=== PATIENT | male | born 1975 | race Caucasian/White ===

== ENCOUNTER 2016-09-16 02:38 | Emergency (ER) | payer OTHER ==
[2016-09-16 02:45] VITALS: BP 131/99
[2016-09-16] MEDS ORDERED: DEXAMETHASONE 10 MG/ML VIAL PO STA (03:17)
[2016-09-16] MEDS ORDERED: AZITHROMYCIN 250 MG TABLET PO STA (03:17)
[2016-09-16] MEDS ORDERED: DEXAMETHASONE 10 MG/ML VIAL ONE (03:19)
[2016-09-16] MEDS ORDERED: AZITHROMYCIN 250 MG TABLET PO ONE (03:19)
[2016-09-16] MEDS ORDERED: CHERRY SYRUP 10 ML UDC PO ONE (03:19)
--- NOTE | 2016-09-16 03:20 | ED Physician Documentation ---
PD HPI HEENT - Stated complaint Stated Complaint: LT EAR PAIN - Chief complaint Chief Complaint: Heent - History obtained from History obtained from: Patient - History of Present Illness Timing - onset: Yesterday Timing - duration: Hours Timing - details: Gradual onset, Still present Location: Left ear Improves: Medication Associated symptoms: Congestion, Rhinorrhea, Headache, Cough Similar symptoms before: Diagnosis (OM and sinusitis) Recently seen: Not recently seen - Additional information Additional information: 41 y/o male has had sinus congestion for the last week and he has now developed pain in the left ear, hearing loss and a sensation that the ear drum is about to rupture. He has had this about once every 4 years. Review of Systems Constitutional: reports: Fever Eyes: denies: Loss of vision Ears: reports: Loss of hearing, Ear pain. denies: Drainage/discharge Nose: reports: Rhinorrhea / runny nose, Congestion, Sinus pressure / pain Throat: denies: Sore throat Cardiac: denies: Chest pain / pressure, Palpitations Respiratory: reports: Cough. denies: Dyspnea GI: denies: Vomiting PD PAST MEDICAL HISTORY - Past Medical History Cardiovascular: None Respiratory: None Neuro: None Endocrine/Autoimmune: None GI: None : None HEENT: None Psych: None Musculoskeletal: None Derm: None - Past Surgical History Past Surgical History: No - Present Medications Home Medications: Ambulatory Orders Medication Instructions Recorded Confirmed Azithromycin [Zithromax] 250 mg PO DAILY #4 tablet 09/16/16 - Allergies Allergies/Adverse Reactions: Allergies Allergy/AdvReac Type Severity Reaction Status Date / Time No Known Drug Allergies Allergy Verified 10/23/14 15:56 - Social History Does the pt smoke?: No Smoking Status: Never smoker Does the pt drink ETOH?: Yes Does the pt have substance abuse?: No - Immunizations Immunizations are current?: Yes PD ED PE NORMAL - Vitals Vital signs reviewed: Yes (hypertensive ) - General General: Alert and oriented X 3, No acute distress, Well developed/nourished - HEENT HEENT: Atraumatic, PERRL, EOMI, Other (boht TM's are inflammed with rounding of the umbo The left is worse than the right .) - Neck Neck: Supple, no meningeal sign, No bony TTP - Cardiac Cardiac: RRR, No murmur - Respiratory Respiratory: No respiratory distress, Clear bilaterally - Back Back: No CVA TTP, No spinal TTP - Derm Derm: Normal color, Warm and dry, No rash - Extremities Extremities: No deformity, No edema - Neuro Neuro: No motor deficit, No sensory deficit - Psych Psych: Normal mood, Normal affect Results - Vitals Vitals: Vital Signs - 24 hr 09/16/16 02:42 Temperature 36.0 C L Heart Rate 76 Respiratory 20 Rate Blood Pressure 131/99 H O2 Saturation 98 Oxygen O2 Source Room air PD MEDICAL DECISION MAKING - ED course Complexity details: considered differential, d/w patient ED course: 41 y/o male with hearing loss and ear pain has BOM on exam and he is given decadron 10mg PO and zithromax 500mg PO. Departure - Departure Disposition: Home, Self Care Clinical Impression: Otitis media Qualifiers: Otitis media type: suppurative Laterality: bilateral Chronicity: acute Recurrence: not specified as recurrent Spontaneous tympanic membrane rupture: without spontaneous rupture Qualified Code(s): H66.003 - Acute suppurative otitis media without spontaneous rupture of ear drum, bilateral Condition: Stable Instructions: ED Otitis Media Acute Adult Follow-Up: [facility] [Provider Group] Prescriptions: Azithromycin [Zithromax] 250 mg PO DAILY #4 tablet Comments: Today in the Emergency Department your blood pressure was elevated. This can happen from the stress of the visit itself, from a current illness or circumstance or from uncontrolled hypertension. If you take blood pressure medications take your usual mediations, have your blood pressure re-checked in an appropriate setting and follow up any elevation with your primary care doctor.
[2016-09-16] MEDS ORDERED: HYDROcod/ACET 5/325 Prepack 6 PO ONE ×2 (03:22)
== END 2016-09-16 03:28 | disposition home or self-care (01) ==
LOC: ED 02:38
DX: H66.003 Acute suppurative otitis media without spontaneous rupture of ear drum, bilateral (principal); R03.0 Elevated blood-pressure reading, without diagnosis of hypertension
CPT/HCPCS: 99283; A9270

== ENCOUNTER 2017-10-14 21:23 | Emergency (ER) | payer OTHER ==
[2017-10-14] MEDS ORDERED: LACTATED RINGERS 2,000 ML IV STA (22:12)
--- NOTE | 2017-10-14 22:17 | ED Physician Documentation ---
PD HPI NVD - Stated complaint Stated Complaint: DIARRHEA - Chief complaint Chief Complaint: Abd Pain - History obtained from History obtained from: Patient - History of Present Illness Timing - onset: Other (4 days of profuse watery diarrhea with chills but no measured fevers. No abdominal pain and no nausea. His [id number] may be has diarrhea 2. No recent travel or antibiotics.) Review of Systems Ten Systems: 10 systems reviewed and negative Constitutional: reports: Chills. denies: Fever GI: reports: Diarrhea. denies: Abdominal Pain, Nausea Neurologic: reports: Other (Dizzy and lightheadedness) PD PAST MEDICAL HISTORY - Past Medical History Past Medical History: Yes Cardiovascular: None Respiratory: None Endocrine/Autoimmune: None GI: None : None HEENT: None Psych: Depression, Anxiety Musculoskeletal: None Derm: None - Past Surgical History Past Surgical History: No - Present Medications Home Medications: Ambulatory Orders Medication Instructions Recorded Confirmed Antidpressant 10/14/17 - Allergies Allergies/Adverse Reactions: Allergies Allergy/AdvReac Type Severity Reaction Status Date / Time No Known Drug Allergies Allergy Verified 10/14/17 21:51 - Social History Does the pt smoke?: No Smoking Status: Never smoker Does the pt drink ETOH?: Yes Does the pt have substance abuse?: No - Immunizations Immunizations are current?: Yes - POLST Patient has POLST: No PD ED PE NORMAL - Vitals Vital signs reviewed: Yes - General General: Alert and oriented X 3, No acute distress - HEENT HEENT: Other (Dry mucous membranes) - Cardiac Cardiac: Other (Borderline tachycardia) - Abdomen Abdomen: Normal bowel sounds, Soft, Non tender - Neuro Neuro: Alert and oriented X 3, Normal speech Results - Vitals Vitals: Vital Signs - 24 hr 10/14/17 21:45 Temperature 36.6 C Heart Rate 92 Respiratory 16 Rate Blood Pressure 122/81 H O2 Saturation 97 Oxygen O2 Source Room air - Labs Labs: Laboratory Tests 10/14/17 10/14/17 22:29 22:29 WBC 4.7 L RBC 5.43 Hgb 16.9 Hct 50.9 MCV 93.6 MCH 31.1 H MCHC 33.3 RDW 13.4 Plt Count 187 MPV 7.5 Neut # (Auto) 2.4 Lymph # (Auto) 1.6 Harper # (Auto) 0.7 Eos # (Auto) 0.1 Baso # (Auto) 0.0 Absolute Nucleated RBC 0.00 Nucleated RBC % 0.0 Sodium 137 Potassium 3.5 Chloride 104 Carbon Dioxide 26 Anion Gap 7.0 BUN 14 Creatinine 0.9 Estimated GFR (MDRD) 92 Glucose 91 Calcium 8.9 Total Bilirubin 0.6 AST 24 ALT 27 Alkaline Phosphatase 49 Total Protein 7.5 Albumin 4.4 Globulin 3.1 Albumin/Globulin Ratio 1.4 Lipase 36 PD MEDICAL DECISION MAKING - ED course ED course: 42-year-old with 4 days of profuse watery diarrhea and symptoms and signs of dehydration. He was administered 2 L of LR here. Stool studies were ordered. - Sepsis Event Vital Signs: Vital Signs - 24 hr 10/14/17 21:45 Temperature 36.6 C Heart Rate 92 Respiratory 16 Rate Blood Pressure 122/81 H O2 Saturation 97 Oxygen O2 Source Room air Departure - Departure Disposition: 01 Home, Self Care Clinical Impression: Dehydration Diarrhea Qualifiers: Diarrhea type: presumed infectious Qualified Code(s): R19.7 - Diarrhea, unspecified Condition: Stable Record reviewed to determine appropriate education?: Yes Instructions: ED Gastroenteritis Report Pend Comments: Call your doctor to arrange a follow-up appointment, make the next available appointment. In the interim, return anytime if worse or if new symptoms develop.
[2017-10-14 22:35] LABS: BASOPHILS % (AUTO) 0.7 %; EOSINOPHILS # (AUTO) 0.1 10^3/uL (0.0-0.7); EOSINOPHILS % (AUTO) 1.7 %; HGB - HEMOGLOBIN 16.9 g/dL (14.0-18.0); LYMPHOCYTES # (AUTO) 1.6 10^3/uL (1.5-3.5); LYMPHOCYTES % (AUTO) 33.1 %; MEAN CORPUSCULAR HEMOGLOBIN 31.1 pg (27.0-31.0); MEAN CORPUSCULAR HGB CONC 33.3 g/dL (32.0-36.0); MEAN CORPUSCULAR VOLUME 93.6 fL (80.0-94.0); MEAN PLATELET VOLUME 7.5 fL (7.4-11.4); MONOCYTES # (AUTO) 0.7 10^3/uL (0.0-1.0); MONOCYTES % (AUTO) 14.4 %; NEUTROPHILS # (AUTO) 2.4 10^3/uL (1.5-6.6); NEUTROPHILS % (AUTO) 50.1 %; PLT - PLATELET COUNT 187 10^3/uL (130-450); RED BLOOD COUNT 5.43 10^6/uL (4.70-6.10); RED CELL DISTRIBUTION WIDTH 13.4 % (12.0-15.0); WHITE BLOOD COUNT 4.7 x10^3/uL (4.8-10.8)
[2017-10-14 22:50] LABS: ALBUMIN 4.4 g/dL (3.2-5.5); ALBUMIN/GLOBULIN RATIO 1.4 (1.0-2.2); BILIRUBIN,TOTAL 0.6 mg/dL (0.2-1.0); CALCIUM 8.9 mg/dL (8.5-10.3); CREATININE 0.9 mg/dL (0.6-1.2); TOTAL PROTEIN 7.5 g/dL (6.7-8.2)
[2017-10-15 00:44] VITALS: BP 128/83
== END 2017-10-15 00:43 | disposition home or self-care (01) ==
LOC: ED 21:23
DX: E86.0 Dehydration (principal); R19.7 Diarrhea, unspecified
CPT/HCPCS: 36415; 80053; 83690; 85025; 87045; 87046; 87177; 87209; 87493; 96360; 96361; 99283; 99284; J7120

== ENCOUNTER 2019-06-08 13:27 | Outpatient (CLI) | payer OTHER ==
--- NOTE | 2019-06-08 16:49 | SLEEP CARE CONSULTATION ---
Information from patient questionnaire entered by Alicia Cat. I have reviewed and concur with the information entered by Alicia Cat. This document represents the service I personally performed and the decisions made by me, Kayli Carlos MD, [facility]. History of Present Illness Reason for Visit: New patient Chief Complaint: reports: Other (For an Apnea test) Duration of Symptoms: 2 years Usual bedtime: 2000 Time it takes to fall asleep: 5 minutes Snores at night: No (not really) Observed to quit breathing while asleep: No Sleeps alone due to snoring: No Number of times waking at night: 3-4 Reasons for waking at night: reports: Other (nightmares (PTSD, Panice attacks)) Toss, Turn, or Twitch while sleeping: Yes Recalls having dreams: Yes Usually gets out of bed at: 0400 Feels refreshed in the morning: No Morning headache: No Sleepy or fatigued during the day: Yes Ever fallen asleep while driving: No Takes day naps: Yes Dreams during day naps: Yes Prior sleep studies: No Additional HPI information: I had the pleasure of seeing Mr. Hutton today regarding the possibility of him having a sleep disorder. As you know, he is a 44 year old gentleman who complains of bad dreams and anxiety. requests a sleep study. The patient tells me that he normally goes to bed around 8 pm, and it takes him approximately 5 minutes to fall asleep. He takes clonazepam at night. He has been told that he snores occasionally at night. He has never been observed to stop breathing in his sleep but his says he gasps for air. His sleeps in the same bed. He can recall waking up on the average of 3 - 4 times during the night. Most of the time he wakes up because of nightmares and panic attack. There is a lot of tossing and turning in his sleep. No somniloquy (sleep talking) or somnambulism (sleep walking). Generally he can recall having dreams. In the morning he usually gets up out of the bed around 4 a.m. not feeling refreshed nor rested. He usually does not have a morning headache. During the day he complains of feeling sleepy and fatigued. His score on [place] Sleepiness Scale is 10 out of 24. He has never fallen asleep while driving nor has had any accident due to sleepiness. He usually takes naps during the day. Upon falling asleep during the day he reports having dreams. He has never had sleep paralysis, experienced cataplexy or symptoms of restless leg syndrome. He reports having impaired concentration during the day. Subjective Initial [place] Sleepiness Scale score: 10 Past Medical History Past Medical History: reports: Anxiety, Depression, Other (PTSD) Social History The patient's occupation is retired. Patient is and lives in [place]. Have you smoked in the past 12 months: No Alcohol use: No Caffeine use: Yes Caffeine amount and frequency: 1-2 cups Family History Family history of sleep disordered breathing: No Allergies and Home Medications Drug allergies reviewed: Yes Home medication list reviewed: Yes (clonazepam and an antidepressant) Review of Systems Cardiovascular: denies: high blood pressure, palpitations, chest pain, irregular heart rate or pulse, leg or foot swelling, have to sleep sitting up, other Respiratory: denies: shortness of breath, wheeze, sputum production, chronic cough, other Gastrointestinal: denies: heartburn, difficulty swallowing, nausea, vomitting, diarrhea, abdominal pain, other Urinary: denies: incontinence, frequency, urgency, impotence, other Neurological: denies: headaches, seizure, head trauma, disorientation, speech dysfunction, gait or balance problems, fainting or unconsciousness, other Psychiatric: reports: anxiety, depression, mood disorder Ear/Nose/Throat: reports: sinus problems Endocrine: denies: thyroid disease, history of goiter, sluggishness, too hot or cold, excessive thirst, increased appetite, increased urination, unexplained weakness, other Immunologic: denies: sneezing, rash, itching, allergies to food or environment, other Physical Exam Vital signs obtained and entered by: Dr. Carlos Blood Pressure: 134/86 Cuff size: regular Heart Rate: 72 O2 Saturation: 96 Height: 5 ft 6 in Weight: 157 lb Body Mass Index: 25.3 BMI Classification: Overweight Neck circumference: 14.5 Mood/affect: normal HEENT: No craniofacial malformation Nostrils: patent to airflow Turbinates: normal Septum: midline Mouth and throat: narrow oropharynx Soft palate: long Hard palate: normal Uvula: normal Uvula visualization: 50% Mallampati Class II Tongue: normal in size Tonsils: 1+ Chin and jaw: normal size and position Neck: normal w/o lymphadenopathy or thyromegaly Heart: regular rate and rhythm Lungs: clear bilaterally Abdomen: soft, non-tender Extremities: no edema or clubbing Neurologic: intact, no focal deficits Impression and Plan IMPRESSION: 1. Possible Obstructive Sleep Apnea-Hypopnea Syndrome, as suggested by history of snoring, frequent awakenings during the night, unrefreshed sleep, cognitive impairment, and daytime hypersomnolence. Narrow oropharynx and obesity are common predisposing factors for obstructive sleep apnea-hypopnea syndrome. Pathophysiology of sleep-disordered breathing was discussed. I recommend proceeding to polysomnography to confirm the diagnosis and to assess severity. If he has significant sleep disordered breathing, a manual CPAP titration study will also be performed to find the optimal treatment pressure. I informed the patient of what the sleep studies involve and after some discussion, he agreed to proceed. 2. Insomnia, due to underlying psychiatric disorders which cause him to wanting to spend more time in bed. The patient goes to bed early at 8 pm but is not happy with waking at 4 am which is actually appropriate assuming the normal sleep requirement of 8 hours a night. Plan: 1. Schedule polysomnography + manual CPAP titration study 2. Avoid long distance driving or when feeling sleepy. 3. Avoid alcohol, sedative and muscle relaxant around bedtime. 4. Attempt to lose weight. 5. Return in 1 to 2 weeks after the study to discuss results and initiate therapy. I spent 100% of this visit face to face with the patient with greater than 50% of this was spent time counseling the patient and coordination of care.
[2019-06-08 16:50] VITALS: BP 134/86
== END 2019-06-08 13:28 ==
LOC: MERGE 13:27 → SC 13:27
PROVIDERS: ATTEND Internal Medicine Pulmonary Disease
DX: G47.10 Hypersomnia, unspecified (principal); G47.8 Other sleep disorders; R06.83 Snoring; R41.89 Other symptoms and signs involving cognitive functions and awareness; G47.00 Insomnia, unspecified
CPT/HCPCS: 99203; 99212

== ENCOUNTER 2019-06-21 20:28 | Outpatient (CLI) | payer OTHER | END 2019-06-21 20:29 | disposition home or self-care (01) | LOC: SC 20:28 → MERGE 20:30 | PROVIDERS: ATTEND Internal Medicine Pulmonary Disease | DX: G47.61 Periodic limb movement disorder (principal); G47.8 Other sleep disorders | CPT/HCPCS: 95810 ==

== ENCOUNTER 2019-08-31 15:48 | Outpatient (CLI) | payer OTHER ==
--- NOTE | 2019-08-31 14:15 | SLEEP CARE CONSULTATION ---
Information from patient questionnaire entered by Alicia Cat. I have reviewed and concur with the information entered by Alicia Cat. This document represents the service I personally performed and the decisions made by me, Kayli Carlos MD, [facility]. History of Present Illness Service Date and Time: 08/31/2019 1400 Initial [place] Sleepiness Scale score: 10 Additional HPI information: To minimize the risk of COVID-19 exposure, the patient has requested and consented to this video telemedicine visit. The patient also agrees to having his insurance billed. HPI: Mr. Hutton was called for a follow up of the sleep study he had on 06/21/2019. The polysomnography showed that the patient had very poor sleep efficiency as the patient was awake most of the night. The study was also terminated prematurely due to the patients panic attack. The sleep architecture was abnormal for sleep fragmentation and lack of REM sleep. Respiratory monitoring showed no significant sleep disordered breathing (AHI = 0.0) or hypoxia (meera oxygen saturation of 90%). The patient slept in both supine and non-supine positions (supine AHI = 0.0; non-supine = 0.00). Snore was light in intensity. There was severe periodic leg movement of sleep not contributing to the sleep fragmentation. Cardiac rhythm was normal sinus rhythm without significant arrhythmia. No abnormal behavior (parasomnia) observed during the night. The patient was informed of these findings. I explained to him that the study was too short to may any conclusions but it does suggest that he has periodic leg movement of sleep. The patient is more concerned about sleep apnea because his tells him that he quits breathing, especially when he takes clonazepam. Allergies and Home Medications Drug allergies reviewed: Yes Home medication list reviewed: Yes Review of Systems Review of systems same as previous: Yes Physical Exam Height: 5 ft 6 in Impression and Plan IMPRESSION: 1. Periodic leg movement of sleep, severe. The cause of periodic leg movement of sleep is typically unknown. Few known causes are iron deficiency, renal failure, and selective serotonin reuptake inhibitors. Iron and ferritin levels are recommended in addition to the routine blood work. The patient is on an antidepressant. However, at the same time, he is already taking clonazepam which is a treatment for the periodic leg movement of sleep. Further treatment will be deferred to his primary care provider at the [facility]. 2. Suspected obstructive sleep apnea-hypopnea. Because the patient could not sleep in the laboratory setting, I recommend a home sleep apnea test (HSAT) for further evaluation. PLAN: 1. Order a home sleep apnea test ([facility] periodic leg movement of sleep. 3. Return for a follow up after the home sleep apnea test (HSAT). Visit Type: Telehealth Video Video Type: Crestock Patient Location: Home Location of Provider: Home Patient agrees and consents to this telehealth visit type: Yes Patient agrees to have their insurance billed: Yes Provider Statement: I spent 100% of the Telehealth Video Call with the patient with greater than 50% spent counseling the patient and coordination of care.
== END 2019-08-31 15:49 | disposition home or self-care (01) ==
LOC: SC 15:48
PROVIDERS: ATTEND Internal Medicine Pulmonary Disease
DX: G47.61 Periodic limb movement disorder (principal); G47.8 Other sleep disorders; R06.83 Snoring; G47.00 Insomnia, unspecified

== ENCOUNTER 2019-10-14 11:33 | Outpatient (CLI) | payer OTHER ==
--- NOTE | 2019-10-14 12:00 | XRAY Report ---
Reason: ABNORMAL FINDINGS Procedure Date: 10/14/2019 Accession Number: [id number] / [id number] Procedure: XR - Chest 2 View X-Ray CPT Code: 41351 Final Report FULL RESULT: PROCEDURE: Chest 2 View X-Ray INDICATIONS: ABNORMAL FINDINGS TECHNIQUE: 2 view(s) of the chest. COMPARISON: None. FINDINGS: Surgical changes and devices: None. Lungs and pleura: No pleural effusions or pneumothorax. Lungs are clear. Mediastinum: Mediastinal contours are normal. Heart size is normal. Bones and chest wall: No suspicious bony abnormalities. Soft tissues appear unremarkable. IMPRESSION: No acute process. Reviewed by: Uziel Whiteside MD on 10/14/2019 11:59 AM PDT Approved by: Uziel Whiteside MD on 10/14/2019 11:59 AM PDT Station ID: [id number]
== END 2019-10-14 11:34 | disposition home or self-care (01) ==
LOC: DI 11:33
PROVIDERS: ATTEND Family Medicine
DX: R93.89 Abnormal findings on diagnostic imaging of other specified body structures (principal)
CPT/HCPCS: 71046

== ENCOUNTER → 2019-10-14 | Outpatient (CLI) | payer OTHER | LOC: SC 19:30 | PROVIDERS: ATTEND Internal Medicine Pulmonary Disease | DX: R06.83 Snoring (principal); G47.8 Other sleep disorders; R53.83 Other fatigue; G47.00 Insomnia, unspecified; F32.9 Major depressive disorder, single episode, unspecified | CPT/HCPCS: 95806 ==

== ENCOUNTER 2019-11-23 11:11 | Outpatient (CLI) | payer OTHER ==
--- NOTE | 2019-11-23 09:53 | SLEEP CARE CONSULTATION ---
Information from patient questionnaire entered by Samantha oHpe. I have reviewed and concur with the information entered by Samantha Hope. This document represents the service I personally performed and the decisions made by me, Kayli Carlos MD, [facility]. History of Present Illness Service Date and Time: 11/23/2019 0940 Initial [place] Sleepiness Scale score: 10 (in 2019) Additional HPI information: To minimize the risk of COVID-19 exposure, the patient has requested and consented to this phone telemedicine visit. The patient also agrees to having his insurance billed. HPI: Mr. Hutton was called for a follow up of the sleep study he had on 10/14/2019. The polysomnography was normal. The AHI was 1.7 and no significant hypoxemia. The patient slept adequately in supine position. Heart rate was within normal limits. The patient was informed of these findings. I explained to him that the home sleep apnea test (HSAT) was normal. IMPRESSION: 1. Periodic leg movement of sleep, based on his earlier in-laboratory polysomnography. He will follow up with the [facility] where he gets his regular care. PLAN: 1. Follow up with the [facility]. 2. Return to the sleep clinic on as needed basis. I spent 100% of the 8 minute phone call with the patient with greater than 50% of this spent counseling the patient and coordination of care. The patient was at home and the provider was in the office during this encounter. Sleep Study - Results Type of Sleep Study: Home sleep study Allergies and Home Medications Drug allergies reviewed: Yes Home medication list reviewed: Yes Physical Exam Height: 5 ft 6 in Impression and Plan Visit Type: Telehealth Video Video Type: [place] Provider Statement: I spent 100% of the Telehealth Video Call with the patient with greater than 50% spent counseling the patient and coordination of care.
== END 2019-11-23 11:12 | disposition home or self-care (01) ==
LOC: SC 11:11
PROVIDERS: ATTEND Internal Medicine Pulmonary Disease
DX: G47.61 Periodic limb movement disorder (principal)

== ENCOUNTER 2020-02-13 14:40 | Emergency (ER) | payer OTHER ==
--- NOTE | 2020-02-13 14:54 | ED Physician Documentation ---
PD HPI GI BLEED - Stated complaint Stated Complaint: MALE - Chief complaint Chief Complaint: Abd Pain - History obtained from History obtained from: Patient - History of Present Illness Timing - onset: How many days ago (4-5 days ago, noted small amount of red/blood along with stool after BM. Noted with stool in toilet. Did not have red on TP with wiping. Was okay for few days and then noted bright red blood along with formed stool today. Mild lower abd cramping at times the past day or so. Denies constipation.) Timing - details: Intermittant Associated symptoms: BRBPR. No: Vomiting, Black/tarry stool, Diarrhea, Constipation, Fever, Dizzy Contributing factors: No: Sick contact (s), Recent antibiotics, Aspirin use Similar symptoms before: Has not had sx before Review of Systems Constitutional: denies: Fever, Chills Nose: denies: Rhinorrhea / runny nose, Congestion Throat: denies: Sore throat Respiratory: denies: Cough GI: denies: Nausea, Vomiting, Diarrhea Skin: denies: Rash, Lesions PD PAST MEDICAL HISTORY - Past Medical History Cardiovascular: None Respiratory: None Endocrine/Autoimmune: None GI: None : None HEENT: None Psych: Depression, Anxiety Musculoskeletal: None Derm: None - Past Surgical History Past Surgical History: No - Present Medications Home Medications: Ambulatory Orders Medication Instructions Recorded Confirmed Antidpressant 10/14/17 Cephalexin [Keflex] 500 mg PO BID #14 capsule 02/13/20 metroNIDAZOLE [Flagyl] 500 mg PO BID #20 tablet 02/13/20 - Allergies Allergies/Adverse Reactions: Allergies Allergy/AdvReac Type Severity Reaction Status Date / Time No Known Drug Allergies Allergy Verified 02/13/20 14:44 - Social History Does the pt smoke?: No Smoking Status: Never smoker Does the pt drink ETOH?: Yes Does the pt have substance abuse?: No - Family History Family history: reports: Other (father with colon cancer when older but pt concern about that. ) - Immunizations Immunizations are current?: Yes - POLST Patient has POLST: No PD ED PE NORMAL - Vitals Vital signs reviewed: Yes - General General: Alert and oriented X 3, No acute distress, Well developed/nourished - Cardiac Cardiac: RRR, No murmur - Respiratory Respiratory: Clear bilaterally - Abdomen Abdomen: Normal bowel sounds, Soft, Non tender, Non distended, No organomegaly - Male Male : Deferred - Rectal Rectal: Other (no external lesions/swelling. Digital exam also does not reveal local swelling nor tenderness to suggest cause of bleeding. ) - Derm Derm: Normal color, Warm and dry Results - Vitals Vitals: Vital Signs - 24 hr 02/13/20 02/13/20 14:44 16:12 Temperature 36.6 C 36.8 C Heart Rate 74 74 Respiratory 16 16 Rate Blood Pressure 125/83 H 127/92 H O2 Saturation 98 95 Oxygen O2 Source Room air - Labs Labs: Laboratory Tests 02/13/20 02/13/20 15:35 15:35 WBC 6.4 RBC 5.26 Hgb 16.2 Hct 48.2 MCV 91.6 MCH 30.8 MCHC 33.6 RDW 12.1 Plt Count 202 MPV 9.7 Neut # (Auto) 3.4 Lymph # (Auto) 2.3 [place] # (Auto) 0.4 Eos # (Auto) 0.2 Baso # (Auto) 0.1 Absolute Nucleated RBC 0.00 Nucleated RBC % 0.0 Sodium 142 Potassium 3.8 Chloride 107 Carbon Dioxide 26 Anion Gap 9.0 BUN 20 Creatinine 1.3 H Estimated GFR (MDRD) 60 L Glucose 97 Calcium 9.0 Magnesium 2.2 Total Bilirubin 0.8 AST 18 ALT 24 Alkaline Phosphatase 58 Total Protein 7.1 Albumin 4.5 Globulin 2.6 Albumin/Globulin Ratio 1.7 Lipase 37 - Rads (name of study) abd/pelvic CT Radiology: Prelim report reviewed (normal appendix. diverticula with -itis. No colitis, masses, nor other lesions to account for bleeding. ), See rad report PD MEDICAL DECISION MAKING - ED course Complexity details: reviewed results (CT showing diverticula but no -itis. No other colitis nor focal lesions. Presume diverticular bleeding but consider colonoscopy near future to ensure no other abnormal cause. ), considered differential (rectal without noted hemorrhoid nor fissure. Has some lower abd discomfort, so consider diverticulitis, mass, colitis, etc. Can get labs/CT to evaluate. ), d/w patient Departure - Departure Disposition: 01 Home, Self Care Clinical Impression: Rectal bleeding Condition: Stable Record reviewed to determine appropriate education?: Yes Instructions: ED Hematochezia Stable Follow-Up: Elan Davison MD [Primary Care Provider] - Murray Rausch MD [Provider Admit Priv/Credential] - Prescriptions: metroNIDAZOLE [Flagyl] 500 mg PO BID #20 tablet Cephalexin [Keflex] 500 mg PO BID #14 capsule Comments: Right now your blood count and chemistry panel are good. Your CT scan does not show any acute process. There is some diverticula noted and this is likely the cause of your blood with the stool. However may still be reasonable to get a colonoscopy to fully exclude any other lesions. At this point stay well-hydrated. Use some anti-inflammatories if needed for cramps or pains. Expect some mild occasional bleeding over the next couple of days but then it should resolve. If you have increasing pain, mucus or diarrhea stools or some increased bleeding, you could start antibiotics for presumed development of diverticulitis. Follow-up with your primary care if not resolved over the next 4 to 5 days. Otherwise contact surgery to make a outpatient appointment to discuss possible colonoscopy. Discharge Date/Time: 02/13/20 17:09
[2020-02-13 15:40] LABS: BASOPHILS # (AUTO) 0.1 10^3/uL (0.0-0.1); BASOPHILS % (AUTO) 0.9 %; EOSINOPHILS # (AUTO) 0.2 10^3/uL (0.0-0.7); EOSINOPHILS % (AUTO) 3.1 %; HGB - HEMOGLOBIN 16.2 g/dL (14.0-18.0); LYMPHOCYTES # (AUTO) 2.3 10^3/uL (1.5-3.5); LYMPHOCYTES % (AUTO) 36.1 %; MEAN CORPUSCULAR HEMOGLOBIN 30.8 pg (27.0-31.0); MEAN CORPUSCULAR HGB CONC 33.6 g/dL (32.0-36.0); MEAN CORPUSCULAR VOLUME 91.6 fL (80.0-94.0); MEAN PLATELET VOLUME 9.7 fL (7.4-11.4); MONOCYTES # (AUTO) 0.4 10^3/uL (0.0-1.0); MONOCYTES % (AUTO) 6.1 %; NEUTROPHILS # (AUTO) 3.4 10^3/uL (1.5-6.6); NEUTROPHILS % (AUTO) 53.6 %; PLT - PLATELET COUNT 202 10^3/uL (130-450); RED BLOOD COUNT 5.26 10^6/uL (4.70-6.10); RED CELL DISTRIBUTION WIDTH 12.1 % (12.0-15.0); WHITE BLOOD COUNT 6.4 x10^3/uL (4.8-10.8)
[2020-02-13 15:55] LABS: ALBUMIN 4.5 g/dL (3.2-5.5); ALBUMIN/GLOBULIN RATIO 1.7 (1.0-2.2); BILIRUBIN,TOTAL 0.8 mg/dL (0.2-1.0); CREATININE 1.3 mg/dL (0.6-1.2); MAGNESIUM 2.2 mg/dL (1.7-2.8); TOTAL PROTEIN 7.1 g/dL (6.7-8.2)
[2020-02-13] MEDS ORDERED: IOVERSOL 320 100 ML VIAL IVP ONE ×2 (16:11→16:29)
[2020-02-13 16:13] VITALS: BP 127/92
--- NOTE | 2020-02-13 16:32 | CT Report ---
PROCEDURE: Abdomen/Pelvis W INDICATIONS: BRBPR and lower abd cramping CONTRAST: IV CONTRAST: Optiray 320 ml: 100 PO CONTRAST: *NO PO CONTRAST TECHNIQUE: After the administration of intravenous contrast, 5 mm thick sections acquired from the diaphragms to the symphysis. 5 mm thick coronal and sagittal reformats were acquired. For radiation dose reducti on, the following was used: automated exposure control, adjustment of mA and/or kV according to tamika ent size. COMPARISON: None. FINDINGS: Image quality: Excellent. ABDOMEN: Lung bases: Lung bases are clear. Heart size is normal. Solid organs: Liver and spleen are normal in size and enhancement. Gallbladder is contracted. Bili jossie system is non dilated. Pancreas enhances normally. No adrenal nodules. Kidneys demonstrate nor mal size and enhancement, without hydronephrosis. Peritoneum and bowel: Bowel loops demonstrate normal wall thickness and caliber. The appendix is thi n-walled and gas-filled. There are scattered sigmoid colon diverticular outpouchings. No mucosal thic kening or pericolonic fat stranding to suggest acute diverticulitis. No free fluid or air. Nodes and vessels: No retroperitoneal or mesenteric adenopathy by size criteria. Aorta and inferior vena cava are normal in size. Miscellaneous: No ventral hernias. PELVIS: Genitourinary: Bladder wall thickness is normal. Miscellaneous: No inguinal hernias or adenopathy. Bones: No suspicious bony lesions. No vertebral body compression fractures. IMPRESSION: 1. No acute intra-abdominal findings. Normal appendix. 2. Diverticulosis. No acute diverticulitis. It is unclear whether the rectal bleeding may be secondar y to an intermittent diverticular bleed. Consider direct visualization with colonoscopy. Reviewed by: Laura Mccray MD on 02/13/2020 4:30 PM PDT Approved by: Laura Mccray MD on 02/13/2020 4:30 PM PDT Station ID: [id number]
== END 2020-02-13 17:09 | disposition home or self-care (01) ==
LOC: ED 14:40
DX: K62.5 Hemorrhage of anus and rectum (principal); K57.30 Diverticulosis of large intestine without perforation or abscess without bleeding; Z80.0 Family history of malignant neoplasm of digestive organs
CPT/HCPCS: 36415; 74177; 80053; 83690; 83735; 85025; 99284; Q9967

== ENCOUNTER 2020-03-15 11:38 | Outpatient (CLI) | payer OTHER | END 2020-03-15 11:39 | disposition home or self-care (01) | LOC: COV 11:38 | PROVIDERS: ATTEND Family Medicine | DX: R05 Cough (principal); M79.10 Myalgia, unspecified site; R53.83 Other fatigue; R68.83 Chills (without fever); J02.9 Acute pharyngitis, unspecified; Z20.828 Contact with and (suspected) exposure to other viral communicable diseases ==

== ENCOUNTER 2020-03-19 16:24 | Emergency (ER) | payer OTHER ==
--- NOTE | 2020-03-19 16:47 | ED Physician Documentation ---
PD HPI ABD PAIN - Stated complaint Stated Complaint: LOWER BACK PX - Chief complaint Chief Complaint: Abd Pain - History obtained from History obtained from: Patient - Additional information Additional information: 44-year-old gentleman with history of mild hypertension without specific treatment. Last 3 to 4 weeks he has had bilateral flank pain with dark smelly urine that is extra foamy. He is worried because he was seen here a few weeks ago for a self-limited lower GI bleed and at that time his renal function was a little substandard with a GFR of 60 and a creatinine of 1.3. He also describes about 3 weeks of malaise and fatigue. Had a Covid test for same a few days ago that was negative. Review of Systems Constitutional: reports: Myalgias, Fatigue. denies: Fever, Chills Nose: denies: Rhinorrhea / runny nose, Congestion Cardiac: denies: Chest pain / pressure, Palpitations Respiratory: denies: Dyspnea, Cough GI: denies: Abdominal Pain, Nausea, Vomiting, Constipation, Diarrhea, Bloody / black stool PD PAST MEDICAL HISTORY - Past Medical History Cardiovascular: None Respiratory: None Endocrine/Autoimmune: None GI: None : None HEENT: None Psych: Depression, Anxiety Musculoskeletal: None Derm: None - Past Surgical History Past Surgical History: No - Present Medications Home Medications: Ambulatory Orders Medication Instructions Recorded Confirmed Antidpressant 10/14/17 - Allergies Allergies/Adverse Reactions: Allergies Allergy/AdvReac Type Severity Reaction Status Date / Time No Known Drug Allergies Allergy Verified 03/19/20 16:45 - Social History Does the pt smoke?: No Smoking Status: Never smoker Does the pt drink ETOH?: Yes Does the pt have substance abuse?: No - Immunizations Immunizations are current?: Yes - POLST Patient has POLST: No PD ED PE NORMAL - Vitals Vital signs reviewed: Yes - General General: Alert and oriented X 3, No acute distress - HEENT HEENT: PERRL, EOMI - Neck Neck: Supple, no meningeal sign, No bony TTP - Cardiac Cardiac: RRR, No murmur - Respiratory Respiratory: No respiratory distress, Clear bilaterally - Abdomen Abdomen: Non tender - Back Back: No CVA TTP, No spinal TTP - Derm Derm: Normal color, Warm and dry - Extremities Extremities: No edema, No calf tenderness / cord - Neuro Neuro: Alert and oriented X 3, Normal speech Results - Vitals Vitals: Vital Signs - 24 hr 03/19/20 03/19/20 16:32 19:18 Temperature 36.5 C 36.8 C Heart Rate 66 83 Respiratory 16 16 Rate Blood Pressure 123/83 H 135/89 H O2 Saturation 99 97 Oxygen O2 Source Room air - Labs Labs: Laboratory Tests 03/19/20 03/19/20 03/19/20 16:40 17:14 17:14 WBC 6.2 RBC 5.00 Hgb 15.5 Hct 46.3 MCV 92.6 MCH 31.0 MCHC 33.5 RDW 12.4 Plt Count 211 MPV 9.4 Neut # (Auto) 3.5 Lymph # (Auto) 2.0 [place] # (Auto) 0.5 Eos # (Auto) 0.2 Baso # (Auto) 0.1 Absolute Nucleated RBC 0.00 Nucleated RBC % 0.0 Sodium 139 Potassium 3.7 Chloride 101 Carbon Dioxide 26 Anion Gap 12.0 BUN 12 Creatinine 1.7 H Estimated GFR (MDRD) 44 L Glucose 97 Calcium 8.5 Total Bilirubin 0.8 AST 20 ALT 28 Alkaline Phosphatase 53 Total Protein 6.9 Albumin 4.3 Globulin 2.6 Albumin/Globulin Ratio 1.7 Lipase 34 Urine Color LT. YELLOW Urine Clarity CLEAR Urine pH 7.0 Ur Specific [place] 1.010 Urine Protein NEGATIVE Urine Glucose (UA) NEGATIVE Urine Ketones NEGATIVE Urine Occult Blood NEGATIVE Urine Nitrite NEGATIVE Urine Bilirubin NEGATIVE Urine Urobilinogen 0.2 (NORMAL) Ur Leukocyte Esterase NEGATIVE Ur Microscopic Review NOT INDICATED Urine Culture Comments NOT INDICATED PD MEDICAL DECISION MAKING - ED course ED course: 44-year-old gentleman with malaise and bilateral flank pain. He was worried about his renal function. Sure enough his creatinine has gone from 1.8 couple of years ago to 1.3 a few weeks ago now to 1.7. He he is not taking any NSAIDs or any other medications. His urinalysis is normal. He had a CT for a lower GI bleed a few weeks ago which was without evidence of nephroliths or hydronephrosis. Departure - Departure Disposition: 01 Home, Self Care Clinical Impression: MATTIE (acute kidney injury) Fatigue Qualifiers: Fatigue type: unspecified Qualified Code(s): R53.83 - Other fatigue Condition: Good Record reviewed to determine appropriate education?: Yes Instructions: ED Diet Renal Comments: In 2018 your creatinine was 0.9, on February 12 of this year it was 1.3, and today it is 1.7. This corresponds to a GFR of 92 in 2018, 60 on February 12 and 44 today. Do not take any medications that would damage your kidneys, the most common are nonsteroidal anti-inflammatory drugs such as Motrin Aleve ibuprofen, Call your doctor tomorrow to arrange follow-up and consider nephrology referral. The following is the email I sent him yang: "I had the pleasure of seeing your patient, Aba soria. This is a 44-year-old gentleman he was seen about a month ago for self-limited lower GI bleeding on that day his creatinine was 1.3. He returns today with nonspecific symptoms of fatigue and backache. Now his creatinine is 1.7. It is a post renal pattern and his urinalysis is normal. We did an ultrasound of the retroperitoneum which did not show obstruction. I am not sure why his kidneys are going downhill so fast. He is not taking NSAIDs and he is otherwise pretty healthy. He does have mild high blood pressure, but not enough I think to cause a hypertensive nephropathy. We will follow-up with him and consider nephrology referral."
[2020-03-19 17:19] LABS: BASOPHILS # (AUTO) 0.1 10^3/uL (0.0-0.1); BASOPHILS % (AUTO) 0.8 %; EOSINOPHILS # (AUTO) 0.2 10^3/uL (0.0-0.7); EOSINOPHILS % (AUTO) 3.1 %; HGB - HEMOGLOBIN 15.5 g/dL (14.0-18.0); MEAN CORPUSCULAR HGB CONC 33.5 g/dL (32.0-36.0); MEAN CORPUSCULAR VOLUME 92.6 fL (80.0-94.0); MEAN PLATELET VOLUME 9.4 fL (7.4-11.4); MONOCYTES # (AUTO) 0.5 10^3/uL (0.0-1.0); MONOCYTES % (AUTO) 7.5 %; NEUTROPHILS # (AUTO) 3.5 10^3/uL (1.5-6.6); NEUTROPHILS % (AUTO) 56.4 %; PLT - PLATELET COUNT 211 10^3/uL (130-450); RED CELL DISTRIBUTION WIDTH 12.4 % (12.0-15.0); WHITE BLOOD COUNT 6.2 x10^3/uL (4.8-10.8)
[2020-03-19 17:20] LABS: BILIRUBIN,URINE NEGATIVE (NEGATIVE); GLUCOSE, URINE (UA) NEGATIVE (NEGATIVE); KETONES,URINE (UA) NEGATIVE (NEGATIVE); LEUKOCYTE ESTERASE, URINE NEGATIVE (NEGATIVE); NITRITE,URINE NEGATIVE (NEGATIVE); OCCULT BLOOD,URINE NEGATIVE (NEGATIVE); PROTEIN,URINE NEGATIVE (NEGATIVE); UROBILINOGEN,URINE 0.2 (NORMAL) E.U./dL (NORMAL)
[2020-03-19 17:26] LABS: CLARITY,URINE CLEAR (CLEAR)
[2020-03-19 17:33] LABS: ALBUMIN 4.3 g/dL (3.2-5.5); ALBUMIN/GLOBULIN RATIO 1.7 (1.0-2.2); BILIRUBIN,TOTAL 0.8 mg/dL (0.2-1.0); CALCIUM 8.5 mg/dL (8.5-10.3); CREATININE 1.7 mg/dL (0.6-1.2); TOTAL PROTEIN 6.9 g/dL (6.7-8.2)
--- NOTE | 2020-03-19 20:16 | Ultrasound Report ---
PROCEDURE: Retroperitoneal INDICATIONS: worsening renal function TECHNIQUE: Real-time scanning was performed of the retroperitoneal organs, with image documentation. COMPARISON: None. FINDINGS: Kidneys: Kidneys are normal in size. Right kidney measures 11.4 cm long; left kidney measures 10.2 cm long. Right renal cortical thickness is 1.6 cm; left renal cortical thickness is 1.8 cm. No paul d masses, hydronephrosis, or nephrolithiasis. Urinary bladder has a prevoid volume of 138 cc. The visible portion of the prostate gland measures 2. 8 x 2.9 x 3.1 cm. There are bilateral ureteral jets visible. There is a very small postvoid residual of 8 cc present. IMPRESSION: 1. No sonographic evidence of obstructive uropathy. 2. Partially distended urinary bladder appears grossly normal given under distention. A very small po st void residual is present. Reviewed by: Nayeli Gonzales MD on 03/19/2020 8:15 PM PST Approved by: Nayeli Gonzales MD on 03/19/2020 8:15 PM PST Station ID: [id number]
[2020-03-19 20:38] VITALS: BP 131/89
== END 2020-03-19 20:38 | disposition home or self-care (01) ==
LOC: ED 16:24
DX: N17.9 Acute kidney failure, unspecified (principal); R53.83 Other fatigue; I10 Essential (primary) hypertension
CPT/HCPCS: 36415; 76770; 80053; 81001; 81003; 83690; 85025; 87086; 99284

== ENCOUNTER 2020-05-30 03:54 | Emergency (ER) | payer OTHER ==
--- NOTE | 2020-05-30 05:44 | ED Physician Documentation ---
History of Present Illness - Stated complaint Stated Complaint: LT EAR PX, HEARING LOSS - Chief complaint Chief Complaint: Heent - History obtained from History obtained from: Patient - Additonal information Additional information: 45yM p/w a week of L ear pain, a/w sensation of swelling. pain is constant, gradual onset, aching, worse with pulling on the ear. no fevers. +hearing loss. Review of Systems Constitutional: denies: Fever Ears: reports: Loss of hearing, Ear pain, Drainage/discharge Skin: denies: Rash, Lesions PD PAST MEDICAL HISTORY - Past Medical History Cardiovascular: None Respiratory: None Endocrine/Autoimmune: None GI: None : None HEENT: None Psych: Depression, Anxiety Musculoskeletal: None Derm: None - Past Surgical History Past Surgical History: No - Present Medications Home Medications: Ambulatory Orders Medication Instructions Recorded Confirmed Antidpressant 10/14/17 Ciproflox/Dexameth Otic Drops 4 drops LEFTEAR BID 10 Days #1 05/30/20 [Ciprodex] bottle - Allergies Allergies/Adverse Reactions: Allergies Allergy/AdvReac Type Severity Reaction Status Date / Time No Known Drug Allergies Allergy Verified 05/30/20 04:03 - Social History Does the pt smoke?: No Smoking Status: Never smoker Does the pt drink ETOH?: Yes Does the pt have substance abuse?: No - Immunizations Immunizations are current?: Yes - POLST Patient has POLST: No PD ED PE NORMAL - Vitals Vital signs reviewed: Yes - General General: Alert and oriented X 3 - HEENT HEENT: Atraumatic, PERRL, EOMI, Other (R ear normal with normal TM. L TM clear. L ext auditory canal erythematous with purulence) Results - Vitals Vitals: Vital Signs - 24 hr 05/30/20 03:59 Temperature 36.8 C Heart Rate 63 Respiratory 18 Rate Blood Pressure 122/81 H O2 Saturation 98 Oxygen O2 Source Room air PD MEDICAL DECISION MAKING - ED course ED course: 45yM with simple otitis externa. return precautions given. f/u pmd Departure - Departure Disposition: 01 Home, Self Care Clinical Impression: Otitis externa Condition: Good Instructions: ED Otitis Externa Prescriptions: Ciproflox/Dexameth Otic Drops [Ciprodex] 4 drops LEFTEAR BID 10 Days #1 bottle Comments: You were seen for otitis externa (swimmers ear). Take these ear drops as prescribed. return for new or worsening symptoms. follow up with your primary doctor.
[2020-05-30] MEDS ORDERED: IBUPROFEN 600 MG TABLET PO STA (05:47)
[2020-05-30 05:54] VITALS: BP 120/73
== END 2020-05-30 05:52 | disposition home or self-care (01) ==
LOC: ED 03:54
DX: H60.92 Unspecified otitis externa, left ear (principal)
CPT/HCPCS: 99282; 99283; A9270

== ENCOUNTER 2021-02-12 10:34 | Day surgery (SDC) | payer OTHER ==
[2021-02-12] MEDS ORDERED: LACTATED RINGERS 1,000 ML IV ONE (11:03)
--- NOTE | 2021-02-12 11:47 | ANESTHESIA ---
Pre-Anesthesia VS, & Labs - Diagnosis blood in stool - Procedure colonoscopy Vital Signs: Temp Pulse Resp BP Pulse Ox 36.8 C 77 18 134/89 H 99 02/12/21 10:46 02/12/21 10:46 02/12/21 10:46 02/12/21 10:46 02/12/21 10:46 Height: 5 ft 7 in Weight (kg): 73.2 kg Body Mass Index: 25.2 BMI Classification: Overweight - NPO >8 hours Home Medications and Allergies Home Medications: Ambulatory Orders Diazepam [Valium] 2 mg PO 02/12/21 Diazepam [Valium] 2 mg PO 02/12/21 Allergies/Adverse Reactions: Allergies Allergy/AdvReac Type Severity Reaction Status Date / Time No Known Drug Allergies Allergy Verified 05/30/20 04:03 Anes History & Medical History - Anesthetic History Anesthesia Complications: reports: No previous complications - Medical History Cardiovascular: reports: None Pulmonary: reports: None Gastrointestinal: reports: None Urinary: reports: None Musculoskeletal: reports: None Endocrine/Autoimmune: reports: None Blood Disorders: reports: None Skin: reports: None Smoking Status: Never smoker History of Cancer?: No Exam General: Alert Dental: WNL Mouth Opening: Greater than 4 Fingerbreadths Neck Mobility: Normal Mallampati classification: II Thyromental Distance: greater than 6 cm Respiratory: Lungs clear Cardiovascular: Regular rate Plan Anesthesia Type: Total IV Consent for Procedure(s) Verified and Reviewed: Yes Code Status: Attempt Resuscitation ASA classification: 2-Mild systemic disease Is this case an emergency?: No
[2021-02-12] MEDS ORDERED: MIDAZOLAM 2 MG/2 ML VIAL ONE (12:47)
[2021-02-12] MEDS ORDERED: fentaNYL 100 MCG/2 ML VIAL ONE (12:47)
[2021-02-12] MEDS ORDERED: LACTATED RINGERS 200 ML IV ONE (13:35)
[2021-02-12] MEDS ORDERED: PROPOFOL 500 MG/50 ML 500 MG/50 ML VIAL ONE (13:35)
[2021-02-12 13:54] VITALS: BP 106/74
--- NOTE | 2021-02-12 16:44 | ANESTHESIA POST OP EVALUATION ---
Anesthesia Post Eval - Post Anesthesia Eval Vitals: Last Vital Signs Temp 36.4 C L 02/12/21 13:53 Pulse 63 02/12/21 13:53 Resp 16 02/12/21 13:53 BP 106/74 02/12/21 13:53 Pulse Ox 96 02/12/21 13:53 CV Function Including HR & BP: Stable Pain Control: Satisfactory Nausea & Vomiting: Negative Mental Status: Baseline Respiratory Status: Airway Patent Hydration Status: Satisfactory Anesthesia Complications: None
== END 2021-02-12 10:35 | disposition home or self-care (01) ==
LOC: SDS 10:34
PROVIDERS: ATTEND Surgery
PROC: 0DBE8ZX Excision of Large Intestine, Via Natural or Artificial Opening Endoscopic, Diagnostic (ICD-10-PCS; principal; 2021-02-12 10:45)
DX: K92.1 Melena (principal); R19.7 Diarrhea, unspecified; I10 Essential (primary) hypertension; R53.83 Other fatigue; F43.10 Post-traumatic stress disorder, unspecified; F41.9 Anxiety disorder, unspecified; F32.9 Major depressive disorder, single episode, unspecified; N28.9 Disorder of kidney and ureter, unspecified
CPT/HCPCS: 45380; J7120

== ENCOUNTER 2021-10-13 18:45 | Emergency (ER) | payer OTHER ==
[2021-10-13] MEDS ORDERED: IBUPROFEN 800 MG TABLET PO STA (19:47)
[2021-10-13] MEDS ORDERED: ACETAMINOPHEN 500 MG TABLET PO STA (19:47)
--- NOTE | 2021-10-13 19:54 | ED Physician Documentation ---
History of Present Illness - Stated complaint Stated Complaint: C+,SOA,ARM NUMBNESS - Chief complaint Chief Complaint: General - History obtained from History obtained from: Patient, Family () - History of Present Illness Timing: Yesterday (46-year-old gentleman with history of High hemat and STEFFANIE on CPAP was exposed to COVID and became symptomatic yesterday afternoon with shaking chills, body aches and fevers. He has not taken anything for it. He had bilateral arm numbness while sleeping earlier today but that is gone. They als) Review of Systems Ten Systems: 10 systems reviewed and negative Constitutional: reports: Fever, Chills, Myalgias, Fatigue Nose: reports: Rhinorrhea / runny nose Throat: reports: Sore throat Respiratory: reports: Cough. denies: Dyspnea PD PAST MEDICAL HISTORY - Past Medical History Past Medical History: Yes Cardiovascular: None Respiratory: None Endocrine/Autoimmune: None GI: None : None HEENT: None Psych: Depression, Anxiety Musculoskeletal: None Derm: None - Past Surgical History Past Surgical History: No - Present Medications Home Medications: Ambulatory Orders Medication Instructions Recorded Confirmed Diazepam [Valium] 2 mg PO DAILY PM PRN 02/12/21 10/13/21 - Allergies Allergies/Adverse Reactions: Allergies Allergy/AdvReac Type Severity Reaction Status Date / Time No Known Drug Allergies Allergy Verified 10/13/21 19:05 - Social History Does the pt smoke?: No Smoking Status: Never smoker Does the pt drink ETOH?: Yes Does the pt have substance abuse?: No - Immunizations Immunizations are current?: Yes - POLST Patient has POLST: No PD ED PE NORMAL - Vitals Vital signs reviewed: Yes - General General: Alert and oriented X 3, No acute distress - HEENT HEENT: PERRL, EOMI - Neck Neck: Supple, no meningeal sign, No bony TTP - Cardiac Cardiac: RRR, No murmur - Respiratory Respiratory: No respiratory distress, Clear bilaterally - Abdomen Abdomen: Non tender - Back Back: No CVA TTP, No spinal TTP - Derm Derm: Normal color, Warm and dry - Extremities Extremities: No edema, No calf tenderness / cord - Neuro Neuro: Alert and oriented X 3, No motor deficit, No sensory deficit, Normal speech Eye Opening: Spontaneous Motor: Obeys Commands Verbal: Oriented GCS Score: 15 Results - Vitals Vitals: Vital Signs - 24 hr 10/13/21 19:00 Temperature 38.4 C H Heart Rate 98 Respiratory 16 Rate Blood Pressure 125/86 H O2 Saturation 96 Oxygen O2 Source Room air PD MEDICAL DECISION MAKING - ED course ED course: Pulse oximetry is reliably in the high 90s here, lungs are clear and he appears well. Not sure what to make of the bilateral arm numbness that is resolved, probably inconsequential related to the fever. No neck pain out of proportion to the other body aches. We discussed antivirals from quite some time and after discussion he declines. I did recommend symptomatic treatment with Tylenol and ibuprofen. Departure - Departure Disposition: Home, Self Care Clinical Impression: COVID-19 Condition: Good Record reviewed to determine appropriate education?: Yes Instructions: ED Viral Syndrome Comments: Take Tylenol and/or ibuprofen as needed for the aches and pains. Drink plenty of fluids. I do recommend given your history relayed to me that you follow-up with your health science specialist. Talk with your PCP about this. Return if worse.
[2021-10-13 20:15] VITALS: BP 110/60
== END 2021-10-13 20:15 | disposition home or self-care (01) ==
LOC: ED 18:45
DX: U07.1 COVID-19 (principal)
CPT/HCPCS: 99282; A9270

== ENCOUNTER 2022-05-11 09:03 | Emergency (ER) | payer OTHER ==
--- NOTE | 2022-05-11 09:30 | ED Physician Documentation ---
PD HPI SKIN - Stated complaint Stated Complaint: BODY NUMB/FATIGUE - Chief complaint Chief Complaint: General - History obtained from History obtained from: Patient - History of Present Illness Timing - onset: How many months ago (2-3 months of arthralgias, fatigue, headaches, poor appetite, and then 2-3 weeks of undulating pruritic/hive-like rash mainly behind knees and at umbilicus. No ulcerations.) Timing - duration: Weeks (for the hives/rash), Months (for the arthralgias and fatigue) Timing - details: Gradual onset, Still present Location: Abdomen, RLE, LLE. No: Face Quality / character: Itchy, Raised. No: Vesicular, Crusted Improved by: No: Steroid cream Associated symptoms: Myalgias, Joint pain (diffusely), N/V/D (less appetite and some loose stools.). No: Fever Contributing factors: Recent illness (had COVID about 6 months ago, ill for 2 weeks, then seemed improved. Above symptoms did not start until few months later.). No: Exposed to medication, Exposed to food Similar symptoms before: Has not had sx before Recently seen: Not recently seen Review of Systems Constitutional: reports: Myalgias, Fatigue. denies: Fever, Chills, Weight Loss Nose: denies: Rhinorrhea / runny nose, Congestion Throat: denies: Sore throat Respiratory: denies: Cough GI: reports: Nausea, Diarrhea (loose but not watery). denies: Abdominal Pain, Vomiting, Constipation : denies: Dysuria, Discharge Skin: reports: Rash (hive-like) Musculoskeletal: reports: Joint pain. denies: Neck pain, Back pain, Extremity swelling Neurologic: reports: Generalized weakness, Headache. denies: Focal weakness, Numbness, Altered mental status PD PAST MEDICAL HISTORY - Past Medical History Cardiovascular: None Respiratory: None Endocrine/Autoimmune: None GI: None : None HEENT: None Psych: Depression, Anxiety Musculoskeletal: None Derm: None - Past Surgical History Past Surgical History: No - Present Medications Home Medications: Ambulatory Orders Medication Instructions Recorded Confirmed Diazepam [Valium] 2 mg PO DAILY PM PRN 02/12/21 05/11/22 dexAMETHasone [Decadron] 4 mg PO DAILY #10 tablet 05/11/22 - Allergies Allergies/Adverse Reactions: Allergies Allergy/AdvReac Type Severity Reaction Status Date / Time No Known Drug Allergies Allergy Verified 05/11/22 09:19 - Living Situation Living Situation: reports: With spouse/s.o. 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 No change in animals. Is organic gardening, so no pesticide exposure/etc. ) - Social History Does the pt smoke?: No Smoking Status: Never smoker Does the pt drink ETOH?: Yes Does the pt have substance abuse?: No - Immunizations Immunizations are current?: Yes - POLST Patient has POLST: No PD ED PE NORMAL - Vitals Vital signs reviewed: Yes - General General: Alert and oriented X 3, No acute distress, Well developed/nourished - HEENT HEENT: Ears normal, Moist mucous membranes, Pharynx benign - Neck Neck: Supple, no meningeal sign, No adenopathy - Cardiac Cardiac: RRR, No murmur, No rub - Respiratory Respiratory: Clear bilaterally - Abdomen Abdomen: Normal bowel sounds, Soft, Non tender, Non distended, Other (umbilicus has hives-like area of rash around it, without vesicles. ) - Back Back: No CVA TTP - Derm Derm: Normal color, Warm and dry, Other (Mild pebbly type rash on the lower abdomen and back. There is hives like rash behind the knees and lower thighs and around the umbilicus.) - Extremities Extremities: Normal ROM s pain, No edema, No calf tenderness / cord - Neuro Neuro: Alert and oriented X 3, No motor deficit, Normal speech Results - Vitals Vitals: Vital Signs - 24 hr 05/11/22 05/11/22 09:14 11:23 Temperature 36.7 C 36.6 C Heart Rate 75 70 Respiratory 16 16 Rate Blood Pressure 149/92 H 140/79 H O2 Saturation 97 98 Oxygen O2 Source Room air - Labs Labs: Laboratory Tests 05/11/22 05/11/22 05/11/22 10:20 10:20 10:20 WBC 6.5 RBC 5.85 Hgb 17.5 Hct 53.1 H MCV 90.8 MCH 29.9 MCHC 33.0 RDW 12.1 Plt Count 225 MPV 9.8 Neut # (Auto) 3.5 Lymph # (Auto) 2.3 [place]ata[place]oula # (Auto) 0.4 Eos # (Auto) 0.2 Baso # (Auto) 0.1 Absolute Nucleated RBC 0.00 Nucleated RBC % 0.0 ESR 1 Sodium Potassium Chloride Carbon Dioxide Anion Gap BUN Creatinine Estimated GFR (MDRD) Glucose Calcium Phosphorus Total Bilirubin AST ALT Alkaline Phosphatase Total Creatine Kinase C-Reactive Protein Total Protein Albumin Globulin Albumin/Globulin Ratio Lipase TSH Rheumatoid Factor NEGATIVE 05/11/22 05/11/22 10:20 10:20 WBC RBC Hgb Hct MCV MCH MCHC RDW Plt Count MPV Neut # (Auto) Lymph # (Auto) Cata[place]oula # (Auto) Eos # (Auto) Baso # (Auto) Absolute Nucleated RBC Nucleated RBC % ESR Sodium 137 Potassium 4.0 Chloride 102 Carbon Dioxide 25 Anion Gap 10.0 BUN 13 Creatinine 1.0 Estimated GFR (MDRD) 80 L Glucose 107 H Calcium 9.0 Phosphorus 4.0 Total Bilirubin 0.9 AST 21 ALT 23 Alkaline Phosphatase 50 Total Creatine Kinase 150 C-Reactive Protein < 1.0 Total Protein 8.0 Albumin 5.0 Globulin 3.0 Albumin/Globulin Ratio 1.7 Lipase 38 TSH 2.77 Rheumatoid Factor PD Medical Decision Making - ED course Complexity details: reviewed results (The initial results show basic chemistry panel and blood count with a normal white cell count. His ESR is quite normal at 1 which would suggest not a active autoimmune process such as lupus or Crohn's. However specific testing results are still pending. Infectious causes would still be considered), considered differential (He has a combination of symptoms including generalized weakness, arthralgias, intermittent hive-like rash, headaches and fatigue. Symptoms can range from autoimmune such as lupus rheumatoid or Crohn's, on to infectious possibilities such as chronic EBV, Lyme disease, chronic syphilis, ricketsial.), d/w patient Reviewed Lab Results: I ordered a wide range of lab test to look for causes for his symptoms. They are not necessarily emergent per se but first-time evaluation for his range of symptoms that have been going on for several months. Some of these tests are send out and will result over the next few days. Departure - Departure Disposition: 01 Home, Self Care Clinical Impression: Urticarial rash, Arthralgia, Weakness generalized Condition: Stable Record reviewed to determine appropriate education?: Yes Follow-Up: [facility] [Provider Group] [facility] [Provider Group] Prescriptions: dexAMETHasone [Decadron] 4 mg PO DAILY #10 tablet Comments: Your basic blood count and chemistry electrolyte tests are okay. Basic inflammatory markers of sed rate and CRP are in the normal range as well. The remainder of the blood tests will not result at this point but will take a 2 or 3 days as a get sent to a reference lab. At this point we can treat the general symptoms with the steroid idea but go with an oral medication to see if it works systemically. Your symptoms do sound like an inflammatory or immune related process. I sent your prescriptions to your preferred pharmacy. [facility] the clinics [facility] the [facility]. There is the [facility] and also [facility]. [facility] phone number is [phone] or can be reached through the main number at [facility]. Potentially you could also follow-up with the walk-in clinic in [place] regarding follow-up on your tests and any further course of treatment. Discharge Date/Time: 05/11/22 11:23
[2022-05-11] MEDS ORDERED: DEXAMETHASONE 10 MG/ML VIAL PO STA (10:07)
[2022-05-11] MEDS ORDERED: CHERRY SYRUP 10 ML UDC PO ONE (10:07)
[2022-05-11 10:26] LABS: BASOPHILS # (AUTO) 0.1 10^3/uL (0.0-0.1); BASOPHILS % (AUTO) 0.8 %; EOSINOPHILS # (AUTO) 0.2 10^3/uL (0.0-0.7); EOSINOPHILS % (AUTO) 2.5 %; HCT - HEMATOCRIT 53.1 % (42.0-52.0); HGB - HEMOGLOBIN 17.5 g/dL (14.0-18.0); LYMPHOCYTES # (AUTO) 2.3 10^3/uL (1.5-3.5); LYMPHOCYTES % (AUTO) 35.9 %; MEAN CORPUSCULAR HEMOGLOBIN 29.9 pg (27.0-31.0); MEAN CORPUSCULAR VOLUME 90.8 fL (80.0-94.0); MEAN PLATELET VOLUME 9.8 fL (7.4-11.4); MONOCYTES # (AUTO) 0.4 10^3/uL (0.0-1.0); MONOCYTES % (AUTO) 6.6 %; NEUTROPHILS # (AUTO) 3.5 10^3/uL (1.5-6.6); PLT - PLATELET COUNT 225 10^3/uL (130-450); RED BLOOD COUNT 5.85 10^6/uL (4.70-6.10); RED CELL DISTRIBUTION WIDTH 12.1 % (12.0-15.0); WHITE BLOOD COUNT 6.5 x10^3/uL (4.8-10.8)
[2022-05-11 10:45] LABS: ALBUMIN/GLOBULIN RATIO 1.7 (1.0-2.2); ALKALINE PHOSPHATASE 50 IU/L (42-121); ALT ALANINE AMINOTRANSFERASE 23 IU/L (10-60); AST ASPARTATE AMINOTRANSFERASE 21 IU/L (10-42); BILIRUBIN,TOTAL 0.9 mg/dL (0.2-1.0); BUN - BLOOD UREA NITROGEN 13 mg/dL (6-20); CARBON DIOXIDE - CO2 25 mmol/L (21-32); CHLORIDE 102 mmol/L (101-111); CK- CREATINE KINASE 150 IU/L (22-269); GFR - MDRD 80 (>89); GLUCOSE 107 mg/dL (70-100); LIPASE 38 U/L (22-51); SODIUM 137 mmol/L (135-145)
[2022-05-11 10:57] LABS: RHEUMATOID FACTOR NEGATIVE (Negative)
[2022-05-11 11:03] LABS: CRP - C-REACTIVE PROTEIN < 1.0 mg/dL (0-1.0)
[2022-05-11 11:24] VITALS: BP 140/79
[2022-05-12 08:07] LABS: EBV AB VCA IGM <36.0 U/mL (0.0-35.9); EBV NUCLEAR ANTIGEN AB IGG >600.0 U/mL (0.0-17.9)
[2022-05-14 09:09] LABS: LYME TOTAL AB CIA Negative (Negative)
[2022-05-14 16:08] LABS: ANTI-DNA (DS) AB QN <1 IU/mL (0-9); CENTROMERE B ANTIBODIES <0.2 AI (0.0-0.9); CHROMATIN ANTIBODIES <0.2 AI (0.0-0.9); JO-1 AB <0.2 AI (0.0-0.9); RIBOSOMAL P ANTIBODIES <0.2 AI (0.0-0.9); RNP ANTIBODIES <0.2 AI (0.0-0.9); SCLERODERMA-70 ANTIBODIES <0.2 AI (0.0-0.9); SJOGREN'S ANTI-SS-A <0.2 AI (0.0-0.9); SJOGREN'S ANTI-SS-B <0.2 AI (0.0-0.9); SMITH ANTIBODIES <0.2 AI (0.0-0.9); SMITH/RNP ANTIBODIES <0.2 AI (0.0-0.9); TREPONEMA PALLIDUM ANTIBODIES Non Reactive (Non Reactive)
== END 2022-05-11 11:23 | disposition home or self-care (01) ==
LOC: ED 09:03
DX: L50.9 Urticaria, unspecified (principal); M25.50 Pain in unspecified joint; R53.1 Weakness; Z86.16 Personal history of COVID-19; R19.7 Diarrhea, unspecified
CPT/HCPCS: 36415; 80053; 82550; 83690; 84100; 84443; 85025; 85651; 86140; 86225; 86235; 86430; 86618; 86664; 86665; 86780; 99283; 99284; A9270

== ENCOUNTER 2023-09-22 13:22 | Emergency (ER) | payer OTHER ==
--- NOTE | 2023-09-22 14:09 | ED Physician Documentation ---
PD HPI BACK PAIN - Stated complaint Stated Complaint: BACK PX - Chief complaint Chief Complaint: Back Pain - History obtained from History obtained from: Patient - History of Present Illness Timing - onset: How many weeks ago (1) Timing - duration: Weeks (1) Timing - details: Abrupt onset, Still present Location: Lower Quality: Pain, Sharp Associated symptoms: Weakness (he is feeling like his legs are not holding him up with walking, increasingly the past weeek.), Incontinent of urine (he states having feeling of unrgency for urination, leading to have to get to BR quickly, but not incontinent). No: Fever, Numbness, Unable to urinate Worsened by: Movement, Twisting Contributing factors: Twisting. No: Lifting, Trauma Similar symptoms before: No diagnosis (he has had cervical pain with arm rad iculitis in the past with workup showing disc problems in neck. Seeing spine surgeon in 2 weeks again regarding possible surgery. has had low back pain in the past but not any formal Dx nor imaging. Has not had back pain this much before.) Review of Systems Constitutional: denies: Fever, Chills, Myalgias Skin: denies: Rash, Lesions PD PAST MEDICAL HISTORY - Past Medical History Past Medical History: Yes Cardiovascular: None Respiratory: None Neuro: None Endocrine/Autoimmune: None GI: None : None HEENT: None Psych: Depression, Anxiety Musculoskeletal: Chronic back pain Derm: None - Past Surgical History Past Surgical History: No - Present Medications Home Medications: Ambulatory Orders Medication Instructions Recorded Confirmed DULoxetine [Cymbalta] 20 mg PO DAILY 09/22/23 09/22/23 Gabapentin [Neurontin] 300 mg PO TID 09/22/23 09/22/23 Lidocaine Patch 5% [Lidoderm Patch] 1 patch TOP DAILY PRN #10 patch 09/22/23 Meloxicam [Mobic] 7.5 mg PO BID 10 Days #20 tablet 09/22/23 Valacyclovir HCl [Valtrex] 1,000 mg PO TID 5 Days #15 tablet 09/22/23 dexAMETHasone [Decadron] 4 mg PO DAILY #5 tablet 09/22/23 methocarbamoL [Robaxin] 500 mg PO Q6H PRN #20 tablet 09/22/23 HYDROcod/ACETAM 5/325 [[place] 5/325] 1 ea PO Q6H PRN #18 tablet 09/23/23 - Allergies Allergies/Adverse Reactions: Allergies Allergy/AdvReac Type Severity Reaction Status Date / Time No Known Drug Allergies Allergy Verified 09/22/23 13:28 - Social History Does the pt smoke?: No Smoking Status: Never smoker Does the pt drink ETOH?: Yes Does the pt have substance abuse?: No - Immunizations Immunizations are current?: Yes - POLST Patient has POLST: No PD ED PE NORMAL - Vitals Vital signs reviewed: Yes - General General: Alert and oriented X 3, Well developed/nourished - Cardiac Cardiac: RRR, No murmur - Respiratory Respiratory: Clear bilaterally - Abdomen Abdomen: Soft, Non tender - Male Male : Other (sensation in inguinal area. ) - Rectal Rectal: Deferred - Back Back: No CVA TTP, Other (tender lumbar lower back without point tenderness/trigger. No rash nor sores. ) - Derm Derm: Normal color, Warm and dry - Extremities Extremities: No tenderness to palpate, No edema - Neuro Neuro: No motor deficit, No sensory deficit (symmetric sensation in legs. Seems to have good strenth for plantar and dorsal flexion. 1+ reflex left patella, and minimal right patella. ) Results - Vitals Vitals: Oxygen O2 Source Room air - Rads (name of study) lumbar CT Relevant Findings:: Prelim report reviewed (no notable abnormality.), EMP independent interpretation of test lumbar MRI Relevant Findings:: Prelim report reviewed (mild disc proceses L3-S1 but no notable foraminal nor central impingement. ), EMP independent interpretation of test PD Medical Decision Making - ED course Complexity details: reviewed results (Lo back pain with feeling of bilateral leg weakness and bladder control weakness. Got imaging of lumbar CT that did not s how acute process. No noted central stenosis. I was able to get emergent MRI then, as recomended from CT report, and also without acute process. Presume then muscular/pain effect.), re-evaluated patient (less pain with meds here in ER. Feels stronger walking, so presume pain mediated muscle inhibition. ), considered differential (prior neck pains and sees spine surgeon. Back pains in the past but now severe and associated with feeling of leg weakness with walking and less bladder control. I feltimaging was important to eval for central canal impingement. ), d/w patient Departure - Departure Disposition: Home, Self Care Clinical Impression: Low back pain, Leg weakness Condition: Stable Record reviewed to determine appropriate education?: Yes Instructions: ED Spasm Back No Trauma Prescriptions: dexAMETHasone [Decadron] 4 mg PO DAILY #5 tablet Lidocaine Patch 5% [Lidoderm Patch] 1 patch TOP DAILY PRN #10 patch PRN Reason: pain Meloxicam [Mobic] 7.5 mg PO BID 10 Days #20 tablet HYDROcod/ACETAM 5/325 [[place] 5/325] 1 ea PO Q6H PRN #18 tablet PRN Reason: Pain methocarbamoL [Robaxin] 500 mg PO Q6H PRN #20 tablet PRN Reason: Spasms Valacyclovir HCl [Valtrex] 1,000 mg PO TID 5 Days #15 tablet Comments: We did do CT as well as MRI of the lower back. They are complementary and the spine surgeons often will use both imagings. There are no significant abnormalities noted on either study. No signs of fractures or dislocation or bony abnormalities on the CT scan. No signs of notable disc processes on the MRI. I did print a copy of the reports for you. This is good and that the pain likely is represented by muscular type process or spasms. The pain in your back can be just an exacerbation of some muscular or nerve root type pain with it radiating down your legs. I would treat it with a combination of some anti-inflammatories (initially Decadron steroid anti- inflammatory for the next several days then transition to meloxicam NSAID twice daily for 7 to 10 days after that.). Also using some topical patches to the area in the back that sore and Robaxin muscle relaxant can be helpful. Heat stretching and massage can be helpful in the area as well. I am curious about the rash that you had behind the legs running linearly down the back on both sides in combination with the pain. Consideration would be mild case of shingles or such and so I would also add valacyclovir antiviral for several days. To all this had hydrocodone every 4-6 hours if needed for worse pains. I sent your prescriptions to preferred pharmacy in [place]. We will give you disc images of your imaging. Your back surgeon can also request the regular images be digitally sent to them. I am prescribing a short course of narcotic pain medication for you. These are potentially dangerous and addictive medications that should be used carefully. These medications may constipate you. Take an [id number] stool softener such as docusate twice daily with plenty of water while taking these medications. If you go 24 hours without a bowel movement, take [id number] MiraLAX, per package instructions. Do not drink or drive while taking these medications. If you received narcotic or sedating medications while in the emergency department do not drive for 24 hours. Store this medication in a safe, secure place and out of reach of children. It is a violation of federal law to give or sell this medication to another person or to use in a manner other than prescribed. The ED will not refill narcotic prescriptions, including prescriptions lost or stolen. You can dispose of unwanted medications at the [facility]'s office or at several pharmacies such as [facility]. Discharge Date/Time: 09/22/23 19:00
[2023-09-22] MEDS: dexAMETHasone 4 MG TABLET PO STA (15:18)
[2023-09-22] MEDS: methocarbamoL 500 MG TABLET PO STA (15:19)
[2023-09-22] MEDS: ACETAMINOPHEN 500 MG TABLET PO STA (15:19)
[2023-09-22] MEDS: KETOROLAC 30 MG/ML VIAL IM STA (15:19)
--- NOTE | 2023-09-22 16:15 | CT Report ---
PROCEDURE: Lumbar Spine WO INDICATIONS: acute worse lumbar pain, legs weak/trouble walk TECHNIQUE: Noncontrast 3 mm thick sections acquired from the T12 level to the sacrum. Sagittal and coronal refo rmats were constructed. For radiation dose reduction, the following was used: automated exposure co ntrol, adjustment of mA and/or kV according to patient size. COMPARISON: 02/13/2020 CT FINDINGS: Image quality: Diagnostic Bones: Vertebral body heights are well-maintained. There are minimal degenerative changes, with disc space height loss and early osteophyte formation. No evidence of traumatic subluxation. Limited CT evaluation, no evidence of critical stenosis. Immediately mild lower lumbar neural foramin al narrowing bilaterally. Mild disc bulges are suspected in the lower lumbar spine. Soft tissues: Mild atelectasis. No paravertebral fluid collection identified. Distended bladder parti ally seen IMPRESSION: No acute fracture or traumatic subluxation. There are minimal degenerative changes. If there is high concern for further derangement, consider MRI evaluation. Reviewed by: Manolo Cohen MD on 09/22/2023 4:14 PM PDT Approved by: Manolo Cohen MD on 09/22/2023 4:14 PM PDT Station ID: [id number]
--- NOTE | 2023-09-22 17:52 | MRI Report ---
PROCEDURE: Lumbar Spine WO INDICATIONS: worse lumbar pain, feeling weakness of legs. TECHNIQUE: Noncontrast sagittal T1 spin echo and T2 fast echo, sagittal STIR, axial T1 and T2 fast spin echo thr ough the lumbar spine. In cases with scoliosis, additional coronal T2 fast spin echo may be performe d. COMPARISON: CT lumbar spine 09/22/2023 FINDINGS: Image quality: Excellent. Alignment and Curvature: There is trace retrolisthesis of L4-L5, L5 on S1.. Bone Marrow: Marrow is of normal overall signal. No acute vertebral body compression fractures. Spinal Cord: Conus medullaris terminates at the T12-L1 level. Visualized cord demonstrates normal s ignal and size. Paraspinous Soft Tissues: No paravertebral masses. T12-L1: No disc bulge, spinal stenosis or foraminal narrowing. L1-L2: No disc bulge, spinal stenosis or foraminal narrowing. L2-L3: Trace disc bulge without spinal stenosis or foraminal narrowing. Epidural lipomatosis as we ll as minimal facet and ligamentum flavum hypertrophy. L3-L4: Trace disc bulge without spinal stenosis or foraminal narrowing. Epidural lipomatosis as wel l as minimal facet and ligamentum flavum hypertrophy. L4-L5: Minimal disc bulge without spinal stenosis or foraminal narrowing. Facet and ligamentum flav um hypertrophy are present. L5-S1: Mild disc bulge with minimal posterior central protrusion. No foraminal narrowing. IMPRESSION: Scattered early degenerative changes as described above. Reviewed by: Cherie Robbins MD on 09/22/2023 5:51 PM PDT Approved by: Cherie Robbins MD on 09/22/2023 5:51 PM PDT Station ID: [id number]
[2023-09-22] MEDS: valACYclovir 500 MG TABLET PO STA (18:05)
[2023-09-22 19:07] VITALS: BP 143/99; O2SAT 100
== END 2023-09-22 19:00 | disposition home or self-care (01) ==
LOC: ED 13:22
DX: M54.50 Low back pain, unspecified (principal); R29.898 Other symptoms and signs involving the musculoskeletal system; R21 Rash and other nonspecific skin eruption
CPT/HCPCS: 72131; 72148; 96372; 99284; A9270; J8540